=== PATIENT | female | born 1995 | race Asian ===

== ENCOUNTER 2017-02-08 14:36 | Emergency (ER) | payer OTHER ==
--- NOTE | 2017-02-08 16:43 | EDPHY ---
H & P Stated Complaint: Sore throat, post nasal drip. HPI/ROS: CHIEF COMPLAINT: SORE THROAT HISTORY OF PRESENT ILLNESS: THIS IS A 21-YEAR-OLD FEMALE WHO PRESENTS TO THE EMERGENCY DEPARTMENT FOR A SORE THROAT. PATIENT REPORTS THE ONSET OF SYMPTOMS OVER THE LAST 2-3 DAYS. SHE HAS HAD ASSOCIATED RUNNY NOSE AND DRY COUGH. HER RUNNY NOSE AND DRY COUGH HAVE BEEN IMPROVING. SHE DENIES PRECIPITATING FACTORS. SHE DENIES ALLEVIATING FACTORS. SHE DENIES OTHER ASSOCIATED SIGNS OR SYMPTOMS INCLUDING NO FEVERS OR OTHER COLD SYMPTOMS, NO CHEST CONGESTION OR TROUBLE BREATHING, NO RASH. - Personal History LMP (Females 10-55): 22-28 Days Ago Current Tetanus/Diphtheria Vaccine: Yes Current Tetanus Diphtheria and Acellular Pertussis (TDAP): Yes - Medical/Surgical History Hx Asthma: No Hx Chronic Respiratory Disease: No Hx Diabetes: No Hx Cardiac Disease: No Hx Renal Disease: No Hx Cirrhosis: No Hx Alcoholism: No Hx HIV/AIDS: No Hx Splenectomy or Spleen Trauma: No Other PMH: PMH: denies - Social History Smoking Status: Never smoked - Physical Exam Exam: General Appearance: Alert and no distress. Eyes: Pupils equal and round no injection. ENT: Tympanic membranes, external auditory canals, external ears and surrounding soft tissue including over the mastoids are unremarkable. Nasopharynx is injected. There is clear rhinorrhea. Oropharynx is mildly injected. There is no edema. There is no exudate. There is no asymmetry. The uvula is midline. No elevation of the tongue. There is no hoarseness, no drooling, no trismus, no stridor. Respiratory: Chest is nontender, lungs are clear to auscultation. Cardiac: regular rate and rhythm. Musculoskeletal: Neck is supple and nontender. Extremities have full range of motion and are nontender. Skin: No rashes or lesions. Neurological: Alert and oriented x4. No meningismus. Constitutional: Initial Vital Signs Temperature (C) 36.5 C 02/08/17 14:39 Heart Rate 89 02/08/17 14:39 Respiratory Rate 18 02/08/17 14:39 Blood Pressure 109/69 02/08/17 14:39 O2 Sat (%) 98 02/08/17 14:39 O2 Delivery Mode Room Air Allergies/Adverse Reactions: No Known Allergies Allergy (Unverified 02/08/17 14:43) Home Medications: Medication Instructions Recorded NK [No Known Home Meds] 02/08/17 Medical Decision Making ED Course/Re-evaluation: Patient seen under the supervision of my primary supervising physician Dr. Becky Oliveros. Patient presents to the emergency department for sore throat, runny nose and nonproductive cough. She is nontoxic. Vital signs are stable. Strep swab is negative. She does have an injected naso and oropharynx. I believe she is appropriate for outpatient management with symptomatic care including antihistamines. I have discussed home care with her. She is asked to follow up with a primary care doctor for recheck. Return precautions are given. Patient voiced understanding and agreement with plan. Differential Diagnosis: Included but not limited to allergic rhinitis, sinusitis, pharyngitis, strep pharyngitis - Data Points Laboratory Results: 02/08/17 02/08/17 Unknown 16:05 Group A Strep Screen NEGATIVE (NEGATIVE) Group A Strep DNA Pending Departure - Departure Disposition: Home, Routine, Self-Care Clinical Impression: Sore throat Condition: Good Instructions: Pharyngitis (ED) Additional Instructions: Follow-up with a primary care doctor for recheck Use an [id number] antihistamine such as Claritin or Zyrtec as directed for symptom control If symptoms worsen or new symptoms develop return to the emergency room for recheck Referrals: NONE *PRIMARY CARE P,. [Primary Care Provider] - As per Instructions [facility],. [Clinic] - As per Instructions
[2017-02-08 17:12] VITALS: BP 117/75; PULSE 86; RESP 16; TEMP 98.6; O2SAT 100
== END 2017-02-08 17:11 | disposition home or self-care (01) ==
DX: J02.9 Acute pharyngitis, unspecified (principal)